=== PATIENT | female | born 1985 | race Caucasian/White ===

== ENCOUNTER → 2020-01-11 15:49 | Outpatient (BNVA) | payer MEDICAID, SELFPAY | PROVIDERS: PCP Nurse Practitioner Family; Visit Provider Nurse Practitioner Family | DX: S86.911A Strain of unspecified muscle(s) and tendon(s) at lower leg level, right leg, initial encounter (principal); X58.XXXA Exposure to other specified factors, initial encounter | CPT/HCPCS: 73562 ==

== ENCOUNTER → 2021-06-08 11:31 | Outpatient (BNVA) | payer MEDICAID, SELFPAY | PROVIDERS: PCP Family Medicine; Visit Provider Surgery | DX: Z20.822 Contact with and (suspected) exposure to COVID-19 (principal); K21.9 Gastro-esophageal reflux disease without esophagitis | CPT/HCPCS: 87635 ==

== ENCOUNTER 2021-06-14 06:53 | Day surgery (SDC) | payer MEDICAID, SELFPAY ==
[2021-06-09 14:35] VITALS: BMI 40.3
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
[2021-06-14 07:19] VITALS: BP 143/91; PULSE 86; RESP 18; TEMP 36.5; O2SAT 98
[2021-06-14 07:29] LABS: OR HCG Qualitative Urine Negative (Negative)
[2021-06-14] MEDS: sodium chloride 0.9% 1,000 ML 30 ML IV (07:33)
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
[2021-06-14 08:21] VITALS: BP 121/78; PULSE 73; RESP 16; TEMP 36.2; O2SAT 95
[2021-06-14 08:31] VITALS: BP 120/77; PULSE 84; RESP 16; O2SAT 97
--- NOTE | 2021-06-14 14:30 | ANE.PACU2 ---
Inpatient post-anesthesia follow up: Airway intact: Yes Vital signs: Temperature 97.2 F Pulse Rate 84 Respiratory Rate 16 Blood Pressure 120/77 Pulse Oximetry 97 Oxygen Delivery Me thod Room Air Oxygen Flow Rate Fraction of Inspir ed Oxygen Hydration adequate: Yes Nausea and vomiting: No Pain level: 1 Mental status: Baseline
[2021-06-15 07:53] LABS: H. Pylori / CLO Test Negative
== END 2021-06-14 08:42 | disposition home or self-care (01) ==
PROVIDERS: Anesthesiology; PCP Family Medicine; Visit Provider Surgery
PROC: 0DJ08ZZ Inspection of Upper Intestinal Tract, Via Natural or Artificial Opening Endoscopic (ICD-10-PCS; CPT 43235; principal; 2021-06-14 08:15)
DX: K21.9 Gastro-esophageal reflux disease without esophagitis (principal); K31.7 Polyp of stomach and duodenum; K21.00 Gastro-esophageal reflux disease with esophagitis, without bleeding; K29.70 Gastritis, unspecified, without bleeding; F17.200 Nicotine dependence, unspecified, uncomplicated; E66.01 Morbid (severe) obesity due to excess calories; Z68.41 Body mass index [BMI] 40.0-44.9, adult; Z98.51 Tubal ligation status
CPT/HCPCS: 43239; 84703; 87077; 88305; 96360; J2704; J3010; J7030

== ENCOUNTER → 2021-08-14 11:20 | Outpatient (BNVA) | payer MEDICAID, SELFPAY | PROVIDERS: PCP Nurse Practitioner Family; Visit Provider Surgery | DX: K21.9 Gastro-esophageal reflux disease without esophagitis (principal); Z20.822 Contact with and (suspected) exposure to COVID-19 | CPT/HCPCS: 87635 ==

== ENCOUNTER 2021-08-17 07:00 | Day surgery (SDC) | payer MEDICAID, SELFPAY ==
[2021-08-14 10:48] VITALS: BMI 37.1
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
[2021-08-17 07:42] VITALS: BP 128/85; PULSE 76; RESP 16; TEMP 36.3; O2SAT 98
[2021-08-17] MEDS: sodium chloride 0.9% 1,000 ML 30 ML IV (07:46)
[2021-08-17 07:47] LABS: OR HCG Qualitative Urine Negative (Negative)
[2021-08-17 08:27] VITALS: BP 115/87; PULSE 83; RESP 18; TEMP 36.3; O2SAT 98
[2021-08-17 08:37] VITALS: BP 125/92; PULSE 76; RESP 18; TEMP 37; O2SAT 96
--- NOTE | 2021-08-17 09:06 | ANE.PACU2 ---
Inpatient post-anesthesia follow up: Airway intact: Yes Vital signs: Temperature 98.6 F Pulse Rate 76 Respiratory Rate 18 Blood Pressure 125/92 Pulse Oximetry 96 Oxygen Delivery Me thod Room Air Oxygen Flow Rate Fraction of Inspir ed Oxygen Hydration adequate: Yes Nausea and vomiting: No Pain level: 1 Mental status: Baseline
== END 2021-08-17 09:00 | disposition home or self-care (01) ==
PROVIDERS: Anesthesiology; PCP Nurse Practitioner Family; Visit Provider Surgery
PROC: 0DJ08ZZ Inspection of Upper Intestinal Tract, Via Natural or Artificial Opening Endoscopic (ICD-10-PCS; CPT 43235; principal; 2021-08-17 08:00)
DX: K31.7 Polyp of stomach and duodenum (principal); K21.00 Gastro-esophageal reflux disease with esophagitis, without bleeding; K22.70 Barrett's esophagus without dysplasia; K29.70 Gastritis, unspecified, without bleeding; E66.01 Morbid (severe) obesity due to excess calories; Z68.37 Body mass index [BMI] 37.0-37.9, adult
CPT/HCPCS: 43239; 81025; 84703; 88305; 96360; J2704; J7030

== ENCOUNTER → 2021-12-27 14:19 | Outpatient (BNVA) | payer MEDICAID, SELFPAY | PROVIDERS: PCP Family Medicine; Visit Provider Surgery | DX: Z09 Encounter for follow-up examination after completed treatment for conditions other than malignant neoplasm (principal); K22.70 Barrett's esophagus without dysplasia; K20.90 Esophagitis, unspecified without bleeding; Z68.41 Body mass index [BMI] 40.0-44.9, adult | CPT/HCPCS: 99213 ==

== ENCOUNTER 2022-11-20 13:14 | Emergency (ER) | payer MEDICARE, MEDICAID, SELFPAY ==
[2022-11-20 13:17] VITALS: BP 139/90; PULSE 85; RESP 16; TEMP 36.9; O2SAT 97
--- NOTE | 2022-11-20 14:35 | CT_ITS ---
WS: [id number] CT HEAD TECHNIQUE: Noncontrast CT of the head obtained from the skullbase to the vertex. CLINICAL INFORMATION: left facial droop, COMPARISON: None. DLP: 1167.[address] scans at [facility] use at least one of these dose optimization techniques: automated e xposure control; mA and/or kV adjustment per patient size (includes targeted exams where dose is matc hed to clinical indication); or iterative reconstruction. FINDINGS: No evidence of intracranial hemorrhage or mass effect. Ventricular system and basal cisterns are mckeon nt. No extra-axial fluid collections. No evidence of mass or mass effect. Normal gamino-white different iation. Inspissated secretions within the LEFT maxillary sinus with air-fluid level.Paranasal sinuses are oth erwise well aerated. Mastoid air cells are well aerated. Normal posterior nasopharynx. CT/CT head wo con* 19591 IMPRESSION: 1. No evidence of intracranial hemorrhage or mass effect. 2. Normal gamino-white differentiation. 3. Inspissated secretions in the LEFT maxillary sinus compatible with sinusiti s. 4. Mastoid air cells well aerated. 5. No acute intracranial findings.
[2022-11-20 14:43] VITALS: BP 130/85; RESP 16; O2SAT 99
--- NOTE | 2022-11-20 14:43 | ECG_ITS ---
[facility] Test Date: 2022-11-20 Pat Name: Lea Hardy Department: Room: Gender: Female Customer Service Leader: : 1985 Requested By: Eb Ospina Order Number: [id number] Benedicto MD: Ruba Lopez M.D. Measurements Intervals Dagmar Rate: 75 P: 30 MA: 115 QRS: 25 QRSD: 89 T: 36 QT: 390 QTc: 438 Interpretive Statements SINUS RHYTHM WITH SHORT MA INTERVAL No previous ECG available for comparison Electronically Signed On 11-21-2022 2:18:48 CDT by Ruba Lopez M.D. [id number]
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
[2022-11-20 15:12] LABS: Basophils # 0.1 10^3/uL (0.0-0.1); Basophils % 0.5 %; Eosinophils # 0.1 10^3/uL (0.0-0.8); Eosinophils % 1.1 %; Hematocrit 41.7 % (37.0-47.0); Lymphocytes # 2.3 10^3/uL (0.8-4.8); Lymphocytes % 23.7 %; Mean Corpuscular HGB Conc 31.2 g/dL (30.0-36.0); Mean Corpuscular Hemoglobin 26.3 pg (28.0-34.0); Mean Corpuscular Volume 84.4 fl (81-99); Mean Platelet Volume 8.9 fL (7.4-10.4); Monocytes # 0.5 10^3/uL (0.2-0.9); Monocytes % 5.6 %; Neutrophils # 6.68 10^3/uL (1.8-7.7); Nucleated Red Blood Cells % 0 %; Platelet Count 356 10^3/cmm (130-400); Red Blood Count 4.94 10^6/uL (4.1-5.3); White Blood Count 9.7 10^3/uL (4.0-10.0)
[2022-11-20 15:22] LABS: Add Urine Microscopic? YES; Bacteria Urine 1+ /hpf; Bilirubin Urine Neg (Negative); Blood Urine 2+ (Negative); Glucose Urine UA Norm (Normal); Ketones Urine Negative (Negative); Leukocyte Esterase Urine Trace (Negative); Mucus Urine 1+ /hpf; Nitrate Urine Negative (Negative); Protein Urine Neg (Negative); RBC Urine 0-4 /hpf (0-2); Squamous Epithelial Cell Urine 0-4 /hpf (0-5); Urine Appearance Hazy (CLEAR); Urine Color Yellow (Yellow); Urobilinogen Urine Norm (Negative); WBC Urine 0-4 /hpf (0-5); pH Urine 6 (5-7)
[2022-11-20 15:29] LABS: Alanine Aminotransferase 13 U/L (0-33); Albumin Level 3.6 g/dL (3.5-5.2); Alkaline Phosphatase 84 U/L (35-105); Anion Gap 15.8 (5-19); Aspartate Amino Transferase 17 U/L (0-32); Blood Urea Nitrogen 9 mg/dL (6-20); C Reactive Protein 11.2 mg/L (0.0-4.9); Calcium 8.5 mg/dL (8.5-10.5); Carbon Dioxide 20 mmol/L (22-29); Chloride 105 mmol/L (98-107); Globulin 3.7 g/dL (1.3-4.6); Glomerular Filtration Rate 138.1 mL/min (90-130); Glucose 95 mg/dL (65-115); Osmolality Calculated 282 mOsm/kg (285-295); Potassium 3.8 mmol/L (3.5-5.1); Sodium 137 mmol/L (136-145); Total Bilirubin 0.2 mg/dL (0.15-1.2); Total Protein 7.3 g/dL (6.6-8.7)
[2022-11-20 15:31] VITALS: BP 119/78; PULSE 53; RESP 16; O2SAT 100
[2022-11-20 15:57] VITALS: BP 141/90; PULSE 90; RESP 17; O2SAT 99
== END 2022-11-20 15:58 | disposition home or self-care (01) ==
PROVIDERS: Emergency Provider Emergency Medicine; PCP Family Medicine
DX: G51.0 Bell's palsy (principal); N39.0 Urinary tract infection, site not specified
CPT/HCPCS: 36415; 70450; 80053; 81001; 83735; 85025; 86140; 93005; 99285

== ENCOUNTER → 2023-05-28 11:45 | Outpatient (BNVA) | payer MEDICARE, MEDICAID, SELFPAY | PROVIDERS: PCP Family Medicine; Visit Provider Family Medicine | DX: D50.9 Iron deficiency anemia, unspecified (principal); Z68.41 Body mass index [BMI] 40.0-44.9, adult; D64.9 Anemia, unspecified; R53.83 Other fatigue | CPT/HCPCS: 80053; 82728; 83540; 84443; 85025 ==

== ENCOUNTER → 2023-10-22 09:46 | Outpatient (BNVA) | payer MEDICARE, MEDICAID, SELFPAY | PROVIDERS: PCP Nurse Practitioner Family; Visit Provider Nurse Practitioner Family | DX: S46.912A Strain of unspecified muscle, fascia and tendon at shoulder and upper arm level, left arm, initial encounter (principal); X58.XXXA Exposure to other specified factors, initial encounter | CPT/HCPCS: 73030 ==

== ENCOUNTER 2023-11-27 15:38 | Outpatient (CLI) | payer MEDICARE, MEDICAID, SELFPAY ==
--- NOTE | 2023-11-27 16:00 | MR_ITS ---
WS: [id number] MRI BRAIN WITH AND WITHOUT CONTRAST HISTORY: W19.XXXA - Unspecified fall, initial encounter COMPARISON: Noncontrast CT 11/20/2022 TECHNIQUE: Multiplanar imaging performed through the brain with MultiHance 18 ml's IV. No acute infarcts are seen. Morse-white matter differentiation is well preserved. T1 hyperintense mass measures 3.7 mm near the caudothalamic groove. This is most consistent with a small lipoma. There is no enhancement in this mass follows fat on all sequences. No susceptibility artifacts or prior lacunar infarcts. Ventricles and extra-axial spaces are normal. Clivus and pituitary gland are normal. Visualized posterior fossa and brainstem are also normal. Postcontrast images are negative for masses or vascular malformations. Dural venous sinuses are normal. Paranasal sinuses: Intermediate signal within the LEFT maxillary sinus consistent with inspissated ma terial from chronic sinus disease. The remaining sinuses are negative. Mastoid air cells: Normal. Calvarium and scalp: Normal. IMPRESSION: 1. No acute infarct or abnormal mass. 2. No hemorrhage from the prior trauma. 3. 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 4. No significant small vessel ischemic disease. 5. LEFT maxillary sinus disease.
[2023-11-27] MEDS: gadobenate dimeglumine 20 mL vial IV (16:26)
== END 2023-11-27 15:39 | disposition home or self-care (01) ==
LOC: RAD 15:39
PROVIDERS: PCP Nurse Practitioner Family; Visit Provider Nurse Practitioner Family
DX: S09.90XA Unspecified injury of head, initial encounter (principal); R51.9 Headache, unspecified; J32.0 Chronic maxillary sinusitis; W19.XXXA Unspecified fall, initial encounter; Y92.009 Unspecified place in unspecified non-institutional (private) residence as the place of occurrence of the external cause
CPT/HCPCS: 70553; A9577

== ENCOUNTER → 2024-04-01 07:49 | Outpatient (BNVA) | payer MEDICARE, MEDICAID, SELFPAY | PROVIDERS: PCP Nurse Practitioner Family; Referring Provider Nurse Practitioner Family; Visit Provider Psychiatry & Neurology Neurology | DX: J32.9 Chronic sinusitis, unspecified (principal); J32.4 Chronic pansinusitis; E60 Dietary zinc deficiency; D17.79 Benign lipomatous neoplasm of other sites; B96.89 Other specified bacterial agents as the cause of diseases classified elsewhere; E66.9 Obesity, unspecified; D50.9 Iron deficiency anemia, unspecified; Z68.41 Body mass index [BMI] 40.0-44.9, adult; E66.01 Morbid (severe) obesity due to excess calories; K21.9 Gastro-esophageal reflux disease without esophagitis; E56.9 Vitamin deficiency, unspecified; G43.011 Migraine without aura, intractable, with status migrainosus; R55 Syncope and collapse | CPT/HCPCS: 99203 ==

== ENCOUNTER 2024-04-16 11:57 | Outpatient (CLI) | payer MEDICARE, MEDICAID, SELFPAY ==
--- NOTE | 2024-04-16 12:15 | MR_ITS ---
WS: [id number] MRA HEAD TECHNIQUE: Axial 3-D TOF images obtained with axial images and axial, sagittal, and coronal 2-D refor matted images. CLINICAL INFORMATION: R51.9 - Headache, unspecified COMPARISON: 11/27/2023 FINDINGS: Distal vertebral arteries are patent. Basilar artery is patent. Normal vascularity to the [employer]IC[employer] territo ry bilaterally. 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 Both ICAs are patent at the skull base. Normal vascularity to the VERNA and MCA territories bilaterally . No evidence of proximal flow-limiting stenosis or aneurysm MR/MR angio head wo con [id number] IMPRESSION: 1. No evidence of proximal flow-limiting stenosis or aneurysm. 2. 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 3. No other acute findings.
== END 2024-04-16 11:58 | disposition home or self-care (01) ==
LOC: RAD 11:58
PROVIDERS: PCP Nurse Practitioner Family; Visit Provider Psychiatry & Neurology Neurology
DX: R51.9 Headache, unspecified (principal); G46.2 Posterior cerebral artery syndrome; J32.4 Chronic pansinusitis; E60 Dietary zinc deficiency; D17.79 Benign lipomatous neoplasm of other sites; J01.90 Acute sinusitis, unspecified; B96.89 Other specified bacterial agents as the cause of diseases classified elsewhere; E66.9 Obesity, unspecified; D50.9 Iron deficiency anemia, unspecified; Z68.41 Body mass index [BMI] 40.0-44.9, adult; E66.01 Morbid (severe) obesity due to excess calories; K21.9 Gastro-esophageal reflux disease without esophagitis
CPT/HCPCS: 70544

== ENCOUNTER 2024-09-18 14:37 | Outpatient (CLI) | payer MEDICARE, MEDICAID, SELFPAY ==
[2024-09-18 15:25] LABS: Basophils # 0.1 10^3/uL (0.0-0.1); Basophils % 0.9 %; Eosinophils # 0.1 10^3/uL (0.0-0.8); Eosinophils % 1.1 %; Hematocrit 30.8 % (36-47); Lymphocytes # 2.5 10^3/uL (0.8-4.8); Lymphocytes % 37.9 %; Mean Corpuscular HGB Conc 29.5 g/dL (30-55); Mean Corpuscular Hemoglobin 22.7 pg (27-33); Mean Corpuscular Volume 76.8 fl (85-98); Monocytes # 0.4 10^3/uL (0.2-0.9); Monocytes % 6.5 %; Neutrophils # 3.55 10^3/uL (1.8-7.7); Neutrophils % 53.4 %; Nucleated Red Blood Cells % 0 %; Platelet Count 433 10^3/cmm (157-399); Red Blood Count 4.01 10^6/uL (3.85-5.65); Red Cell Distribution Width 16.9 % (12.1-15.1); White Blood Count 6.63 10^3/uL (3.29-11.43)
[2024-09-18 15:33] LABS: Bilirubin Urine Negative (Negative); Blood Urine Negative (Negative); Glucose Urine UA Negative (Normal); Ketones Urine Trace (Negative); Leukocyte Esterase Urine Trace (Negative); Nitrate Urine Negative (Negative); Protein Urine Negative (Negative); Specific Gravity, Urine 1.022 (1.005-1.030); Urine Appearance Clear (CLEAR); Urine Color Yellow (Yellow)
[2024-09-18 15:38] LABS: Bacteria Urine Trace /hpf; Hyaline Casts Urine 2.46 /lpf; RBC Urine 0-2 /hpf (0-2); Squamous Epithelial Cell Urine 0-5 /hpf (0-5); WBC Urine 0-5 /hpf (0-5)
[2024-09-18 16:03] LABS: 25 Hydroxy Vitamin D 25 ng/mL (30-100); Alanine Aminotransferase 14 U/L (0-33); Alkaline Phosphatase 88 U/L (35-105); Anion Gap 12.8 (5-19); Aspartate Amino Transferase 18 U/L (0-32); Blood Urea Nitrogen 7 mg/dL (6-20); Carbon Dioxide 26 mmol/L (22-29); Chloride 106 mmol/L (98-107); Chol HDL Ratio 1.95 mg/dL (0.0-4.40); Cholesterol 154 mg/dL (0-200); Globulin 2.8 g/dL (1.3-4.6); Glomerular Filtration Rate 110.7 mL/min (90-130); Glucose 95 mg/dL (65-115); HDL Cholesterol 79 mg/dL (60-100); Homocysteine 5.47 umol/l (0-15); LDL Cholesterol Calculated 66 mg/dL (50-129); LDL HDL Ratio 0.84 RATIO (0.00-3.22); Osmolality Calculated 288 mOsm/kg (285-295); Potassium 4.8 mmol/L (3.5-5.1); Sodium 140 mmol/L (136-145); Thyroid Stimulating Hormone 2.61 uIU/mL (0.27-4.20); Total Bilirubin 0.2 mg/dL (0.15-1.2); Total Protein 6.8 g/dL (6.6-8.7); Triglycerides 46 mg/dL (0-150); Vitamin B12 920 pg/mL (232-1245)
== END 2024-09-18 14:38 | disposition home or self-care (01) ==
LOC: LAB 14:40
PROVIDERS: PCP Nurse Practitioner Family; Visit Provider Psychiatry & Neurology Neurology
DX: R51.9 Headache, unspecified (principal); Z68.41 Body mass index [BMI] 40.0-44.9, adult; J32.4 Chronic pansinusitis; E60 Dietary zinc deficiency; D17.79 Benign lipomatous neoplasm of other sites; J01.90 Acute sinusitis, unspecified; B96.89 Other specified bacterial agents as the cause of diseases classified elsewhere; E66.9 Obesity, unspecified; D50.9 Iron deficiency anemia, unspecified; E66.01 Morbid (severe) obesity due to excess calories; K21.9 Gastro-esophageal reflux disease without esophagitis; R55 Syncope and collapse; R53.83 Other fatigue
CPT/HCPCS: 36415; 80053; 80061; 81001; 82306; 82525; 82607; 83090; 83735; 83921; 84443; 84630; 85025

== ENCOUNTER 2025-02-18 14:29 | Outpatient (CLI) | payer MEDICARE, MEDICAID, SELFPAY ==
[2025-02-18 15:00] LABS: Hematocrit 40.2 % (36-47); Hemoglobin 12.40 g/dL (11.27-16.99); Mean Corpuscular HGB Conc 30.8 g/dL (30-55); Mean Corpuscular Hemoglobin 27.1 pg (27-33); Mean Corpuscular Volume 87.8 fl (85-98); Nucleated Red Blood Cells % 0 %; Platelet Count 381 10^3/cmm (157-399); Red Blood Count 4.58 10^6/uL (3.85-5.65); White Blood Count 6.31 10^3/uL (3.29-11.43)
[2025-02-18 15:17] LABS: Alanine Aminotransferase 16 U/L (0-33); Albumin Level 4.1 g/dL (3.5-5.2); Alkaline Phosphatase 95 U/L (35-105); Anion Gap 17.2 (5-19); Aspartate Amino Transferase 25 U/L (0-32); Blood Urea Nitrogen 10 mg/dL (6-20); Calcium 8.8 mg/dL (8.5-10.5); Carbon Dioxide 21 mmol/L (22-29); Chloride 108 mmol/L (98-107); Ferritin 47 ng/mL (15-150); Globulin 2.8 g/dL (1.3-4.6); Glucose 95 mg/dL (65-115); Iron 64 ug/dL (37-145); Magnesium 1.8 mg/dL (1.7-2.3); Osmolality Calculated 293 mOsm/kg (285-295); Potassium 4.2 mmol/L (3.5-5.1); Sodium 142 mmol/L (136-145); Total Iron Binding Capacity 293 mcg/dl; Total Protein 6.9 g/dL (6.6-8.7); Unsaturated Iron Binding 229 ug/dL (112-347)
[2025-02-18 15:57] LABS: Slide Review Slide Review Perform
[2025-02-23 09:10] LABS: Zinc Level, Serum or Plasma 48 mcg/dL (60-130)
== END 2025-02-18 14:30 | disposition home or self-care (01) ==
LOC: LAB 14:31
PROVIDERS: PCP Nurse Practitioner Family; Visit Provider Nurse Practitioner Family
DX: E55.9 Vitamin D deficiency, unspecified (principal); E60 Dietary zinc deficiency; D50.9 Iron deficiency anemia, unspecified; D64.9 Anemia, unspecified; G47.00 Insomnia, unspecified
CPT/HCPCS: 36415; 80053; 82728; 83540; 83550; 83735; 84590; 84597; 84630; 85025